=== PATIENT | male | born 2000 | race Caucasian/White ===

== ENCOUNTER 2024-03-05 14:47 | Emergency (ER) | payer OTHER, BC ==
[2024-03-05] MEDS ORDERED: Metoclopramide 10 MG Tab PO ONE (15:57)
[2024-03-05] MEDS ORDERED: Ketorolac 10 MG Tab PO ONE (15:57)
== END 2024-03-05 17:05 | disposition home or self-care (01) ==
LOC: JD.ED 14:47
DX: S09.90XA Unspecified injury of head, initial encounter (principal); Z88.0 Allergy status to penicillin; Z88.1 Allergy status to other antibiotic agents; W00.0XXA Fall on same level due to ice and snow, initial encounter; Y93.89 Activity, other specified
CPT/HCPCS: 70450; 70450-26; 99283